=== PATIENT | female | born 1995 | race Caucasian/White ===

== ENCOUNTER 2023-09-02 10:44 | Emergency (ER) | payer MEDICAID ==
[~2023-09-02] VITALS: Ht 167.6 cm; Wt 100.2 kg
[2023-09-02 10:45] VITALS: BP 146/87; TEMP 98.3
[2023-09-02] MEDS ORDERED: LORA-259 PO (11:57)
[2023-09-02 12:05] VITALS: O2SAT 99
== END 2023-09-02 12:06 | disposition home or self-care (01) ==
LOC: ER 10:50
DX: F41.1 Generalized anxiety disorder (principal)

== ENCOUNTER 2025-05-08 19:30 | Emergency (ER) | payer MEDICAID ==
[~2025-05-08] VITALS: Ht 165.1 cm; Wt 97.5 kg
[~2025-05-08 19:30] MED LIST: LORA-259 PO
[2025-05-08 19:40] VITALS: BP 140/89; TEMP 98.8; O2SAT 96
[2025-05-08] MEDS ORDERED: ACET-2605 PO (20:20)
[2025-05-08] MEDS ORDERED: IBUP-1490 PO (20:20)
[2025-05-08] MEDS ORDERED: KETOROLAC TROMETHAMINE 15 MG/ML VIAL ONE (20:29)
[2025-05-08] MEDS ORDERED: PENICILLIN G BENZATHINE 2.4 MMU/4 ML ML IM ONE (20:30)
[2025-05-08] MEDS: PENICILLIN G BENZATHINE 2.4 MMU/4 ML ML IM ONE (20:36)
[2025-05-08] MEDS: KETOROLAC TROMETHAMINE 15 MG/ML VIAL IM ONE (20:36)
== END 2025-05-08 20:49 | disposition home or self-care (01) ==
LOC: ER 19:40
DX: J35.1 Hypertrophy of tonsils (principal); Z60.2 Problems related to living alone
CPT/HCPCS: 99284; 96372; J0558; J1885; J8540 ×2